=== PATIENT | male | born 2000 | race African-American/Black ===

== ENCOUNTER 2020-02-21 08:20 | Day surgery (SDC) | payer OTHER ==
[~2020-02-21 08:20] MED LIST: CEFAZOLIN SODIUM 2 GM in DEXTROSE 5%-WATER 100 ML IV PRN
[2020-02-21] MEDS ORDERED: MIDAZOLAM 2 MG/2 ML INJ ONE ×2 (09:30→12:05)
[2020-02-21] MEDS ORDERED: ROPIVACAINE HCL 0.5% INJ/PF (5 MG/1 ML) 30 ML SDV ONE (09:31)
[2020-02-21] MEDS ORDERED: FENTANYL CITRATE INJ/PF 100 MCG/2 ML AMPUL ONE (09:31)
[2020-02-21] MEDS ORDERED: KETAMINE HCL INJ 500 MG/10 ML VIAL ONE (10:01)
[2020-02-21] MEDS ORDERED: PROPOFOL INJ 200 MG/20 ML VIAL IV ONE (10:02)
[2020-02-21] MEDS ORDERED: FENTANYL CITRATE INJ/PF 100 MCG/2 ML AMPUL IV ONE (10:30)
[2020-02-21] MEDS ORDERED: MIDAZOLAM 2 MG/2 ML INJ IV ONE (10:30)
[2020-02-21] MEDS ORDERED: ONDANSETRON HCL INJ/PF 4 MG/2 ML SDV ONE (12:04)
[2020-02-21] MEDS ORDERED: LIDOCAINE 1% INJ-PF (10 MG/ML) 30 ML SDV ONE (12:05)
[2020-02-21] MEDS ORDERED: BUPIVACAINE HCL 0.5 % INJ/PF 30 ML SDV ONE (12:05)
[2020-02-21] MEDS ORDERED: MORPHINE SULFATE 10 MG/ML INJ IV PRN (12:25)
[2020-02-21] MEDS ORDERED: MEPERIDINE HCL/PF INJ 25 MG/1 ML DISP.SYRIN IV PRN (12:25)
[2020-02-21] MEDS ORDERED: FENTANYL CITRATE INJ/PF 100 MCG/2 ML AMPUL IV PRN ×3 (12:25)
[2020-02-21] MEDS ORDERED: DIPHENHYDRAMINE HCL 50 MG/ML VIAL IV PRN (12:25)
[2020-02-21] MEDS ORDERED: PROMETHAZINE HCL INJ 25 MG/1 ML VIAL IV PRN (12:25)
[2020-02-21] MEDS ORDERED: ONDANSETRON HCL INJ/PF 4 MG/2 ML SDV IV PRN (13:32)
[2020-02-21] MEDS ORDERED: OXYCODONE-ACETAMINOPHEN 5-325 MG TABLET PO PRN (13:32)
--- NOTE | 2020-02-21 13:36 | Discharge Summary ---
Discharge Summary (SDC) - Discharge Final Diagnosis: Left index distal transphalangeal amputation Date of Surgery: 02/21/20 Condition: Good Treatment or Instructions: Schedule Follow Up w/ Dr. Quinn Lux @ [facility] for Surgery to be seen in 10-14 days or as scheduled [place]: [place]: [place]: Ice and elevate Keep splint clean/dry/intact, do not remove. If your fingers become numb please unwrap the Chintan wrap but leave the splint in place, if the sensation does not return within 30 minutes please return to the emergency department. May begin finger range of motion of the adjacent digits Please use ibuprofen (Motrin or Advil) 600-800 mg every 8 hours as needed for pain or fever DO NOT TAKE w/ TORADOL may use once TORADOL complete. You may also use acetaminophen (Tylenol) 1000 mg every 4-6 hours as needed for pain or fever. Please be aware that many medications contain acetaminophen, do not exceed a total of 1000 mg of acetaminophen every 6 hours. If ibuprofen and acetaminophen are not sufficient for your pain you may take the Percocet/[place]. Please be aware that the Percocet/[place] does contain Tylenol. Stool softener of choice when on pain medication. USE OF [id number] IBUPROFEN: Ibuprofen (Advil, Nuprin, Medipren, Motrin IB) is a medication for fever and pain control. In addition, it has anti- inflammatory effects which may be beneficial, especially in the treatment of injuries. It's best to take ibuprofen with food. Persons with ulcer disease or allergy to aspirin should notify their physician of this before taking i buprofen. Ibuprofen can be given every four to six hours, for a total of four doses daily. Age Pain or fever dose Antiinflammatory dose 6-8 yr 200 mg (1 tab) 200 mg (1 tab) 9-11 yr 200 mg (1 tab) 200-400 mg (1-2 tab) 11-14 yr 200-400 mg (1-2 tab) 400 mg (2 tab) 15-adult 400 mg (2 tab) 600 mg (3 tab) ORAL NARCOTIC MEDICATION: You have been given a prescription for pain control. This medication is a narcotic. It's best taken with food, as nausea can result if taken on an empty stomach. Don't operate machinery or drive within six hours of taking this medication. Do not combine this medicine with alcohol, or with any medication w hich can cause sedation (such as cold tablets or sleeping pills) unless you get permission from the physician. Narcotics tend to cause constipation. If possible, drink plenty of fluids and eat a diet high in fiber and fruits. Please be aware that prescription narcotics also have the potential for abuse. People become addicted to these medications because of the general sense of wellbeing that they induce. This feeling along with a significant reduction in tension, anxiety, and aggression provides a stimulating seductive quality to these drugs. Once your pain is under control, we encourage you to discard your unused narcotics. Prescriptions: Ketorolac Tromethamine [Toradol 10 mg Tablet] 10 mg PO Q8HP PRN #12 tablet PRN Reason: Oxycodone HCl/Acetaminophen [Percocet 5-325 mg Tablet] 1 tab PO Q6 PRN #25 tab PRN Reason: Referrals: ERICKA CISNEROS DO [Primary Care Provider] - Discharge Diet: As Tolerated Respiratory Treatments at Home: Deep Breathing/Coughing, Incentive Spirometer Discharge Activity: No Lifting Over 10 Pounds, No Lifting/Push/Pulling Report the Following to Your Physician Immediately: Fever over 101 Degrees, Unusual Bleeding, Redness, Swelling, Warmth, Increased Soreness
--- NOTE | 2020-02-21 13:45 | Operative Report ---
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 Left index thenar flap. 2. Nail ablation SURGEON: Nan Lux ANESTHESIA: IV-Regional COMPLICATIONS: None ESTIMATED BLOOD LOSS: Minimal PROCEDURE: Indication for above procedure: 19-year-old male who sustained a crush injury to his index finger resulting in a partial amputation. Patient was seen at the [facility] where initial irrigation and debridement was performed patient was then sent to me which point we discussed treatment options including revision amputation versus observation versus thenar flap after discussing risks and benefits of each decision was made to proceed with thenar flap. Procedure In Detail: Patient was seen and evaluated in the preoperative holding area. The LEFT upper extremity was initialized and marked. Patient received 2g of Ancef IV for bacterial prophylaxis. Patient was given regional block in the preoperative holding area. Patient was taken back to the operative room where transferred to the operative table and placed under anesthesia. Once they were adequately anesthetized a nonsterile tourniquet was placed on the upper extremity. A surgical team debriefing was performed ensuring all instrumentation was available, the surgical procedure was discussed with possible concerns reviewed. The upper extremity was prepped with Betadine and draped in a sterile fashion. A timeout was done identifying correct patient, procedure and extremity everyone in attendance agree with this and verbalized no concerns. The extremity was exsanguinated the tourniquet was inflated to 250 mmHg. Index finger was debrided additional shortening of the bone was not performed given the fact he had intact FDP function however given the previous debridement of the bone was not adequate bone to allow support of the nail and thus the nail bed was excised deep to the lunula. Any nonviable skin was debrided. Wound was copiously irrigated with normal saline. With the Esmarch bandage a template for lateral soft tissue that was required was constructed. I then transposed the template to the thenar eminence adjacent to the MCP joint crease radially. A 60 degrees and 120 degrees rhomboid flap measuring 2 cm on each edge was constructed to allow closure of the donor site. Skin was then incised the radial digital nerve was identified and protected. A proximal based full-thickness thenar flap was then constructed with special attention to the underlying pedicle The rhomboid transposition flap was then constructed radially based and transposed into the defect. This was secured with interrupted 4-0 nylon suture. The dog ears only were resected to reconstruct smooth contour. Adequate coverage was achieved with the transposition flap thus I do not feel additional skin graft was required. Intermittently throughout the surgical procedure the wound was irrigated with saline. I then proceeded with fixation of the thenar flap. Bending the index at the MCP joint approximately 90 degrees a thenar flap was f irst secured proximally obtaining greater than 70% coverage of the defect. It was then sequentially closed with interrupted 4-0 nylon suture. There was slight excess distally in order to improve contour of the remaining distal phalanx. There was no tension noted on the thenar flap. Tourniquet was deflated patient had normal peripheral bleeding and refill of the flap. Wound was then dressed with Xeroform 4 x 4's and a soft bandage was placed including a Coban to maintain flexion of the MCP joint. Sponge counts, instrument counts, needle counts were correct. Patient was then awoken from a nesthesia. Transferred from the operating room table to the operating room stretcher. There was no intraoperative complications patient tolerated procedure well stable to PACU. Postoperative plan: Patient follow-up the office in 2 weeks we will perform wound check. At that point we will proceed with flap division.
[2020-02-21 14:53] VITALS: BP 151/87
== END 2020-02-21 15:05 | disposition home or self-care (01) ==
LOC: OROUT 08:20
PROVIDERS: ATTEND Orthopaedic Surgery
DX: S68.611A Complete traumatic transphalangeal amputation of left index finger, initial encounter (principal); W31.89XA Contact with other specified machinery, initial encounter
CPT/HCPCS: 01810; 26952; J2795; J2250; J0690; J3010; J3490; J2405; J7060; J2704; 1810

== ENCOUNTER 2020-03-06 07:40 | Day surgery (SDC) | payer OTHER ==
[2020-03-06] MEDS ORDERED: MIDAZOLAM 2 MG/2 ML INJ ONE (10:36)
[2020-03-06] MEDS ORDERED: ONDANSETRON HCL INJ/PF 4 MG/2 ML SDV ONE ×2 (10:36→11:41)
[2020-03-06] MEDS ORDERED: LIDOCAINE 2% INJ-PF (20 MG/ML) 10 ML AMPUL ONE (10:36)
[2020-03-06] MEDS ORDERED: PROPOFOL INJ 200 MG/20 ML VIAL IV ONE (10:36)
[2020-03-06] MEDS ORDERED: FENTANYL CITRATE INJ/PF 100 MCG/2 ML AMPUL ONE (10:36)
[2020-03-06] MEDS ORDERED: PROMETHAZINE HCL INJ 25 MG/1 ML VIAL IV PRN ×2 (10:40)
[2020-03-06] MEDS ORDERED: ONDANSETRON HCL INJ/PF 4 MG/2 ML SDV IV PRN (10:40)
[2020-03-06] MEDS ORDERED: FENTANYL CITRATE INJ/PF 100 MCG/2 ML AMPUL IV PRN ×3 (10:40)
[2020-03-06] MEDS ORDERED: OXYCODONE-ACETAMINOPHEN 5-325 MG TABLET PO PRN ×3 (10:40→11:41)
[2020-03-06] MEDS ORDERED: DIPHENHYDRAMINE HCL 50 MG/ML VIAL IV PRN (10:40)
[2020-03-06] MEDS ORDERED: MEPERIDINE HCL/PF INJ 25 MG/1 ML DISP.SYRIN IV PRN (10:40)
[2020-03-06] MEDS ORDERED: LIDOCAINE 1% INJ-PF (10 MG/ML) 30 ML SDV ONE (10:48)
--- NOTE | 2020-03-06 11:42 | Discharge Summary ---
Discharge Summary (SDC) - Discharge Final Diagnosis: Left index amputation Date of Surgery: 03/06/20 Discharge Date: 03/06/20 Condition: Good Treatment or Instructions: Schedule Follow Up w/ Dr. Quinn Lux @ [facility] for Surgery to be seen in 10-14 days or as scheduled [place]: [place]: [place]: May remove dressing on postop day #3, keep incision covered and dry. Ice and elevate May begin finger range of motion attempting to make full fist. Stool softener of choice when on pain medication. USE OF [id number] IBUPROFEN: Ibuprofen (Advil, Nuprin, Medipren, Motrin IB) is a medication for fever and pain control. In addition, it has anti- inflammatory effects which may be beneficial, especially in the treatment of injuries. It's best to take ibuprofen with food. Persons with ulcer disease or allergy to aspirin should notify their physician of this before taking ibuprofen. Ibuprofen can be given every four to six hours, for a total of four doses daily. Age Pain or fever dose Antiinflammatory dose 6-8 yr 200 mg (1 tab) 200 mg (1 tab) 9-11 yr 200 mg (1 tab) 200-400 mg (1-2 tab) 11-14 yr 200-400 mg (1-2 tab) 400 mg (2 tab) 15-adult 400 mg (2 tab) 600 mg (3 tab) ORAL NARCOTIC MEDICATION: You have been given a prescription for pain control. This medication is a narcotic. It's best taken with food, as nausea can result if taken on an empty stomach. Don't operate machinery or drive within six hours of taking this medication. Do not combine this medicine with alcohol, or with any medication which can cause sedation (such as cold tablets or sleeping pills) unless you get permission from the physician. Narcotics tend to cause constipation. If possible, drink plenty of fluids and eat a diet high in fiber and fruits. Please be aware that prescription narcotics also have the potential for abuse. People become addicted to these medications because of the general sense of wellbeing that they induce. This feeling along with a significant reduction in tension, anxiety, and aggression provides a stimulating seductive quality to these drugs. Once your pain is under control, we encourage you to discard your unused narcotics. Prescriptions: Oxycodone HCl/Acetaminophen [Percocet 5-325 mg Tablet] 1 tab PO Q6 PRN #25 tab PRN Reason: Referrals: ERICKA CISNEROS DO [Primary Care Provider] - Discharge Diet: As Tolerated Respiratory Treatments at Home: Deep Breathing/Coughing Discharge Activity: No Lifting Over 10 Pounds, No Lifting/Push/Pulling Report the Following to Your Physician Immediately: Fever over 101 Degrees, Unusual Bleeding, Redness, Swelling, Warmth, Increased Soreness
--- NOTE | 2020-03-06 11:44 | Operative Report ---
Operative Report DATE OF SURGERY: 03/06/20 PREOPERATIVE DIAGNOSIS: Status post left index thenar flap POSTOPERATIVE DIAGNOSIS: Same OPERATION: Division with inset thenar flap to left index finger SURGEON: SLY GAONA ANESTHESIA: LMAC COMPLICATIONS: None ESTIMATED BLOOD LOSS: Minimal PROCEDURE: Indication for above procedure: 19-year-old male who sustained a complete amputation transphalangeal through the index distal phalanx. Patient was initially treated at [facility] and [place]. He subsequently underwent thenar flap 2 weeks ago. Patient has progressed appropriately there is no sign or symptoms of flap necrosis and thus decision was made to proceed with division and inset. Procedure In Detail: Patient was seen and evaluated in the preoperative holding area. The LEFT upper extremity was initialized and marked. Patient received 2g of Ancef IV for bacterial prophylaxis. Patient was taken back to the operative room where transferred to the operative table. Once they were adequately anesthetized a nonsterile tourniquet was placed on the upper extremity. A surgical team debriefing was performed ensuring all instrumentation was available, the surgical procedure was discussed with possible concerns reviewed. A digital/local block was performed utilizing 10 mL of 1% lidocaine without epinephrine. The upper extremity was prepped with Betadine and draped in a sterile fashion. A timeout was done identifying correct patient, procedure and extremity everyone in attendance agree with this and verbalized no concerns. The extremity was exsanguinated the tourniquet was inflated to 250 mmHg. Base of the thenar flap was divided at its insertion along the thenar eminence. Skin edges of the flap distally were necrotic were attached however the central portion of the flap remained patent with normal refill. Wounds were copiously irrigated with normal saline. The flap was secured to the index finger with interrupted 4-0 nylon suture. Donor site was irrigated with saline skin edges debrided. Skin was then reapproximated with interrupted 4-0 nylon suture. A portion of the sutures were removed. Tourniquet was deflated patient normal peripheral perfusion. Wound was then dressed Xeroform, gauze and soft dressing. Sponge counts, instrument counts, needle counts counts were correct. Patient was then awoken from anesthesia. Transferred from the operating room table to the operating room stretcher. There was no intraoperative complications patient tolerated procedure well stable to PACU. Postoperative plan: Patient will follow-up as scheduled for wound check. Patient will begin range of motion immediately.
[2020-03-06] MEDS ORDERED: OXYCODONE-ACETAMINOPHEN 5-325 MG TABLET ONE (12:43)
[2020-03-06 16:13] VITALS: BP 136/72
== END 2020-03-06 15:20 | disposition home or self-care (01) ==
LOC: OROUT 07:40
PROVIDERS: ATTEND Orthopaedic Surgery
DX: S68.611A Complete traumatic transphalangeal amputation of left index finger, initial encounter (principal); X58.XXXA Exposure to other specified factors, initial encounter
CPT/HCPCS: 15576; J2250; J0690; J3010; J3490 ×2; J2405; J7060; J2704; 400